=== PATIENT | male | born 1985 ===

== ENCOUNTER 2022-11-20 22:15 | Outpatient (REF) | payer BC, SELFPAY ==
[2022-11-22 14:52] LABS: Chlamydia Result Negative (Negative); GC Result Negative (Negative)
[2022-11-24 09:57] LABS: Syphilis Serology (RPR) Negative (Negative)
[2022-11-24 10:57] LABS: HIV-1/2 Ag & Ab Screen Negative (Negative)
[2022-11-24 11:21] LABS: HBs Antibody, Quant <3.1 mIU/mL (See Note); Hepatitis B Surface Ab Negative (See Note)
[2022-11-24 11:40] LABS: Hepatitis C Ab w Rflx HCV PCR Negative (Negative)
[2022-11-26 10:33] LABS: HSV Type 1 Ab, IgG Negative (Negative); HSV Type 2 Ab, IgG Negative (Negative)
== END 2022-11-20 22:16 | disposition home or self-care (01) ==
LOC: LBN 22:15
PROVIDERS: Visit Provider Physician Assistant Medical
DX: Z11.4 Encounter for screening for human immunodeficiency virus [HIV] (principal); Z11.59 Encounter for screening for other viral diseases; Z11.3 Encounter for screening for infections with a predominantly sexual mode of transmission
CPT/HCPCS: 86706; 86803; 87389; 87491; 87591; 86592; 86659; 86695; 86696